=== PATIENT | male | born 1985 | race African-American/Black ===

== ENCOUNTER → 2020-09-08 18:37 | Outpatient (CLI) | payer OTHER, SELFPAY ==
[2020-09-08 20:12] LABS: COVID19 -Nasal RAPID Negative (Negative)
== END ==
PROVIDERS: Visit Provider Physician Assistant
DX: J02.9 Acute pharyngitis, unspecified (principal); Z20.822 Contact with and (suspected) exposure to COVID-19
CPT/HCPCS: 87070; 87635

== ENCOUNTER 2024-03-28 11:42 | Emergency (ER) | payer OTHER, SELFPAY ==
[2024-03-28 12:10] VITALS: BP 155/99; PULSE 78; RESP 17; TEMP 36.8; O2SAT 99; BMI 30.1
[2024-03-28 12:36] VITALS: BP 156/91; PULSE 63; O2SAT 98
[2024-03-28 12:40] LABS: Add Manual Diff / Slide Review NO; Basophils Absolute Auto 0 /uL (0-100); Basophils Percent Auto 0.2 % (0-2); Eosinophils Absolute Auto 0 /uL (0-450); Eosinophils Percent Auto 0.3 % (2-4); Hematocrit 46.2 % (41-53); Hemoglobin 16.1 g/dL (13.5-17.5); Lymphocytes Absolute Auto 1300 /uL (1100-4500); Lymphocytes Percent Auto 12.1 % (25-40); Mean Corpuscular HGB Conc 34.8 % (30-36); Mean Corpuscular Volume 89.1 fL (80-100); Monocytes Absolute Auto 600 /uL (0-900); Monocytes Percent Auto 5.5 % (3-14); Neutrophils Absolute Auto 8800 /uL (1500-7000); Neutrophils Percent Auto 81.9 % (50-75); Platelet Count 337 X10^3/uL (150-400); Red Blood Cell Count 5.19 X10^6/uL (4.5-5.9); Red Cell Distribution Width 13.6 % (11.6-14.8); White Blood Cell Count 10.7 X10^3/uL (4.5-11.0)
[2024-03-28] MEDS: ONDANSETRON 4 MG/2 ML INJ IV (12:40)
[2024-03-28 12:47] LABS: Alanine Aminotransferase 33 IU/L (<50); Albumin 5.1 g/dL (3.5-5.0); Albumin Globulin Ratio 1.4 (1.0-2.8); Alkaline Phosphatase 110 U/L (38-126); Aspartate Aminotransferase 30 IU/L (17-59); Bilirubin Total 0.6 mg/dL (0.2-1.3); Blood Urea Nitrogen 10 mg/dL (9-20); Calcium 9.7 mg/dL (8.4-10.2); Carbon Dioxide 28 mmol/L (22-32); Chloride 101 mmol/L (98-107); Estimated Glomerular Filt Rate > 60 mL/min (>60); Globulin 3.7 g/dL (1.7-4.1); Glucose 110 mg/dL (70-100); HEMOLYSIS < 15 (0-50); Lipase 64 U/L (23-300); Potassium 4.1 mmol/L (3.4-5.1); Sodium 139 mmol/L (137-145); Total Protein 8.8 g/dL (6.3-8.2)
--- NOTE | 2024-03-28 13:18 | ED_ITS ---
HPI - Abdominal Pain <Val Santos PA-C - Last Filed: 03/28/24 14:22> General Chief Complaint: Abdominal Pain Stated Complaint: abd pain Time Seen by Provider: 03/28/24 13:17 Source: patient Mode of arrival: Family Vehicle History of Present Illness HPI narrative: 38-year-old male presents with a chief complaint of diarrhea that began yesterday. He actually states it was more fluffy edge rather than strict water, at no time did he describe any fever, chills, body aches or joint pains. No other members of the household have similar symptoms. He has had no new foods or raw foods, though the turkey may have been slightly undercooked and he may have had a bite of a turkey leg. No recent travel. Last oral intake was last night he tried some plain toast and an apple but then had 1 episode of vomiting at about 4 in the morning just food product. He is denying any sour taste, acid reflux symptoms, he does endorse increased burping, normal gas pattern, no abdominal pain per se he describes a bloating sensation and points to the general abdominal region. He reports no back pain, flank pain, no urinary symptoms. He reports no surgeries except for an adult circumcision. No known family history of any colon issues. He denies any blood or mucus in his stool. No burning or pain with defecation, no incontinence. No weakness, lightheadedness, headache, soreness of throat. Only treatment was 1 dose of Tums and Pepto-Bismol last night. All other systems reviewed and are negative. Use of the [place] stool chart, he characterizes his stool as a 6. Related Data Previous Rx's Medication Instructions Recorded ondansetron 4 mg disintegrating 4 mg PO Q6H #20 tabs 03/28/24 tablet Allergies Allergy/AdvReac Type Severity Reaction Status Date / Time No Known Drug Allergies Allergy Verified 03/28/24 12:39 Review of Systems <Val Santos PA-C - Last Filed: 03/28/24 14:22> Review of Systems Narrative: All other systems reviewed and are negative. Patient History <Val Santos PA-C - Last Filed: 03/28/24 14:22> Social History Smoking Status: Current every day smoker Smoking Status: Current every day smoker tobacco type: vaping alcohol intake frequency: 3 or more drinks per day Alcohol type: beer, wine and hard liquor Substance Use Type: marijuana and hallucinogens Exam <Val Santos PA-C - Last Filed: 03/28/24 14:22> Initial Vital Signs Initial Vital Signs: Vital Signs Temperature 98.3 F 03/28/24 12:10 Pulse Rate 78 03/28/24 12:10 Respiratory Rate 17 03/28/24 12:10 Blood Pressure 155/99 H 03/28/24 12:10 Pulse Oximetry 99 03/28/24 12:10 Oxygen Delivery Method Room Air 03/28/24 12:10 Vital signs reviewed and are normal. Const General: cooperative, healthy appearing, comfortable, well developed, well groomed and No acute distress HENMT Mouth: oral mucosae normal, lip normal, tongue normal and oropharynx normal Eyes Conjunctivae: conjunctivae normal Sclera: sclerae normal Neck Neck: normal visual inspection, full ROM, no meningeal signs and supple Resp Effort & Inspection: normal respiratory effort and able to speak in complete sentences Auscultation: clear to auscultation bilaterally Cardio Rate: regular rate Rhythm: regular rhythm GI Inspection: normal to inspection, no edema and non-distended Palpation: soft, no hepatosplenomegaly and No guarding Percussion: normal to percussion and no fluid wave Auscultation: normal bowel sounds and hyperactive bowel sounds Other: Negative Zhang's sign, negative McBurney's point tenderness, negative jump up and down, no CVA tenderness, negative Rovsing's. No peritoneal signs, negative naval tugging. Skin General: no rashes or lesions noted, elasticity normal and turgor normal Extrem Other: No peripheral edema. <Chayito Walsh DO - Last Filed: 03/28/24 17:02> Initial Vital Signs Initial Vital Signs: Vital Signs Temperature 98.3 F 03/28/24 12:10 Pulse Rate 78 03/28/24 12:10 Respiratory Rate 17 03/28/24 12:10 Blood Pressure 155/99 H 03/28/24 12:10 Pulse Oximetry 99 03/28/24 12:10 Oxygen Delivery Method Room Air 03/28/24 12:10 Course <Val Santos PA-C - Last Filed: 03/28/24 14:22> Orders Ordered: ED Orders 03/28/24 12:30 Complete Blood Count AUTO DIFF Stat Comprehensive Metabolic Panel Stat Lipase Stat Discontinued Medications Ondansetron HCl (Ondansetron 4 Mg/2 Ml Inj) 4 mg IV NOW PRN PRN Reason: Nausea And Vomiting Last Admin: 03/28/24 12:40 Dose: 4 mg Documented By: JASPAL Ondansetron HCl (Ondansetron 4 Mg Odt) 4 mg PO NOW PRN PRN Reason: Nausea And Vomiting Vital Signs Vital signs: Vital Signs - 8 hr 03/28/24 12:10 03/28/24 12:36 03/28/24 12:36 Temperature 98.3 F Pulse Rate 78 63 Respiratory Rate 17 Blood Pressure 155/99 H 156/91 H Pulse Oximetry 99 98 Oxygen Delivery Method Room Air 03/28/24 13:51 Temperature 97.8 F Pulse Rate 65 Respiratory Rate 19 Blood Pressure 142/91 H Pulse Oximetry 98 Oxygen Delivery Method Room Air <Chayito Walsh DO - Last Filed: 03/28/24 17:02> Orders Ordered: ED Orders 03/28/24 12:30 Complete Blood Count AUTO DIFF Stat Comprehensive Metabolic Panel Stat Lipase Stat Discontinued Medications Ondansetron HCl (Ondansetron 4 Mg/2 Ml Inj) 4 mg IV NOW PRN PRN Reason: Nausea And Vomiting Last Admin: 03/28/24 12:40 Dose: 4 mg Documented By: JASPAL Ondansetron HCl (Ondansetron 4 Mg Odt) 4 mg PO NOW PRN PRN Reason: Nausea And Vomiting Vital Signs Vital signs: Vital Signs - 8 hr 03/28/24 12:10 03/28/24 12:36 03/28/24 12:36 Temperature 98.3 F Pulse Rate 78 63 Respiratory Rate 17 Blood Pressure 155/99 H 156/91 H Pulse Oximetry 99 98 Oxygen Delivery Method Room Air 03/28/24 13:51 Temperature 97.8 F Pulse Rate 65 Respiratory Rate 19 Blood Pressure 142/91 H Pulse Oximetry 98 Oxygen Delivery Method Room Air MDM - Abdominal Pain <Val Santos PA-C - Last Filed: 03/28/24 14:22> Lab Data Lab results narrative: CBC is normal, slight increased neutrophil count but normal white blood cell count, chemistries also normal. Lipase was normal. 03/28/24 12:30 03/28/24 12:30 Labs: Lab Results 03/28/24 Range/Units 12:30 WBC 10.7 (4.5-11.0) X10^3/uL RBC 5.19 (4.5-5.9) X10^6/uL Hgb 16.1 (13.5-17.5) g/dL Hct 46.2 (41-53) % MCV 89.1 (80-100) fL MCH 31.0 (26-34) PG MCHC 34.8 (30-36) % RDW 13.6 (11.6-14.8) % Plt Count 337 (150-400) X10^3/uL Neut % (Auto) 81.9 H (50-75) % Lymph % (Auto) 12.1 L (25-40) % Stewart % (Auto) 5.5 (3-14) % Eos % (Auto) 0.3 L (2-4) % Baso % (Auto) 0.2 (0-2) % Neut # (Auto) 8800 H (4529-1571) /uL Lymph # (Auto) 1300 (9121-7828) /uL Stewart # (Auto) 600 (0-900) /uL Eos # (Auto) 0 (0-450) /uL Baso # (Auto) 0 (0-100) /uL Sodium 139 (137-145) mmol/L Potassium 4.1 (3.4-5.1) mmol/L Chloride 101 (98-107) mmol/L Carbon Dioxide 28 (22-32) mmol/L BUN 10 (9-20) mg/dL Creatinine 1.11 (0.66-1.25) mg/dL Estimated GFR > 60 (>60) mL/min BUN/Creatinine Ratio 9.0 (6-22) Glucose 110 H (70-100) mg/dL Calcium 9.7 (8.4-10.2) mg/dL Total Bilirubin 0.6 (0.2-1.3) mg/dL AST 30 (17-59) IU/L ALT 33 (<50) IU/L Alkaline Phosphatase 110 (38-126) U/L Total Protein 8.8 H (6.3-8.2) g/dL Albumin 5.1 H (3.5-5.0) g/dL Globulin 3.7 (1.7-4.1) g/dL Albumin/Globulin Ratio 1.4 (1.0-2.8) Lipase 64 (23-300) U/L MDM Narrative Medical decision making narrative: No clinical findings on examination to suggest an acute abdomen. He has had no bowel movements while here, he was treated with Zofran and given an oral challenge with water. No recurrence of vomiting. At no time did he endorse a fever, no blood or mucus in stools. Main complaint is bloating and loose stools, he has had no recurrence of vomiting while here. Discussed at length the use of clear fluids for the next 24-48 hours and then advancing with brat diet as tolerated. Note was given for release of work for the next couple of days, red flag warning signs reviewed in detail and to return to the emergency department if he develops any worrisome symptoms, has any worsening symptoms. Prescription for additional oral disintegrating Zofran was provided. <Chayito Walsh, - Last Filed: 03/28/24 17:02> Lab Data Labs: Lab Results 03/28/24 Range/Units 12:30 WBC 10.7 (4.5-11.0) X10^3/uL RBC 5.19 (4.5-5.9) X10^6/uL Hgb 16.1 (13.5-17.5) g/dL Hct 46.2 (41-53) % MCV 89.1 (80-100) fL MCH 31.0 (26-34) PG MCHC 34.8 (30-36) % RDW 13.6 (11.6-14.8) % Plt Count 337 (150-400) X10^3/uL Neut % (Auto) 81.9 H (50-75) % Lymph % (Auto) 12.1 L (25-40) % Stewart % (Auto) 5.5 (3-14) % Eos % (Auto) 0.3 L (2-4) % Baso % (Auto) 0.2 (0-2) % Neut # (Auto) 8800 H (8329-7622) /uL Lymph # (Auto) 1300 (3159-3032) /uL Stewart # (Auto) 600 (0-900) /uL Eos # (Auto) 0 (0-450) /uL Baso # (Auto) 0 (0-100) /uL Sodium 139 (137-145) mmol/L Potassium 4.1 (3.4-5.1) mmol/L Chloride 101 (98-107) mmol/L Carbon Dioxide 28 (22-32) mmol/L BUN 10 (9-20) mg/dL Creatinine 1.11 (0.66-1.25) mg/dL Estimated GFR > 60 (>60) mL/min BUN/Creatinine Ratio 9.0 (6-22) Glucose 110 H (70-100) mg/dL Calcium 9.7 (8.4-10.2) mg/dL Total Bilirubin 0.6 (0.2-1.3) mg/dL AST 30 (17-59) IU/L ALT 33 (<50) IU/L Alkaline Phosphatase 110 (38-126) U/L Total Protein 8.8 H (6.3-8.2) g/dL Albumin 5.1 H (3.5-5.0) g/dL Globulin 3.7 (1.7-4.1) g/dL Albumin/Globulin Ratio 1.4 (1.0-2.8) Lipase 64 (23-300) U/L Discharge Plan Departure Patient Disposition: Home Clinical Impression: Nausea vomiting and diarrhea Instructions: Diarrhea, Nausea and Vomiting-Adult Activity Restrictions/Additional Instructions: I have prescribed additional anti nausea medication, please do perform clear liquids for the next 24-48 hours. Sips or ideal, popsicles are great, you can make her own, electrolyte solution such as Gatorade or added packets are also helpful, the cuellar is to maintain your urination and hydration. Advance her diet as tolerated using the brat diet, this includes bananas, plain rice, applesauce or toast, crackers or saltines or goldfish are also good dry cereal. Absolutely avoid dairy including cheese or milk or ice cream. Do rest, please return to the emergency department if you do experience any worsening pain, any new worrisome symptoms, your stools should forearm over the next couple of days, if you do have liquid stools or they persist more than 7 days then a stool sample is helpful. Otherwise try to avoid Imodium or products that can stop you up, you want to empty her bowel and allow it to restore itself. Prescriptions: New ondansetron 4 mg tablet,disintegrating 4 mg PO Q6H Qty: 20 0RF Stand Alone Forms: Patient Portal/API/Survey, Work Release Note ED Sign-out <Chayito Walsh DO - Last Filed: 03/28/24 17:02> Cosign ED Attending Cosignature Attestation: I was immediately available in the department for consultation.
[2024-03-28 13:51] VITALS: BP 142/91; PULSE 65; RESP 19; TEMP 36.6; O2SAT 98
== END 2024-03-28 13:54 | disposition home or self-care (01) ==
PROVIDERS: Emergency Medicine; Emergency Provider Physician Assistant Medical
DX: R19.7 Diarrhea, unspecified (principal); R11.2 Nausea with vomiting, unspecified
CPT/HCPCS: 36415; 80053; 83690; 85025; 96374; 99284; J2405